=== PATIENT | female | born 1960 | race Caucasian/White ===

== ENCOUNTER → 2018-05-25 | Outpatient (CLI) | payer OTHER | END | disposition home or self-care (01) | LOC: LAB SHORT 08:41 → LAB EV 08:41 | DX: N39.0 Urinary tract infection, site not specified (principal) | CPT/HCPCS: 87077; 87086; 87186 ==

== ENCOUNTER → 2020-10-28 | Outpatient (CLI) | payer OTHER ==
[2020-10-30 16:10] LABS: HPV 16 Negative (Negative); HPV 18 Negative (Negative); HPV OTHER HR TYPES Positive (Negative)
== END | disposition home or self-care (01) ==
LOC: LAB SHORT 15:49 → LAB 15:49
PROVIDERS: Obstetrics & Gynecology
DX: Z12.4 Encounter for screening for malignant neoplasm of cervix (principal)
CPT/HCPCS: 87624; 87625; G0123

== ENCOUNTER → 2021-11-19 | Outpatient (CLI) | payer OTHER | END | disposition home or self-care (01) | LOC: LAB SHORT 11:29 | DX: R21 Rash and other nonspecific skin eruption (principal) | CPT/HCPCS: 87252; 87254 ==

== ENCOUNTER → 2023-01-11 | Outpatient (CLI) | payer OTHER ==
[2023-01-13 16:11] LABS: HPV 16 Negative (Negative); HPV 18 Negative (Negative); HPV OTHER HR TYPES Positive (Negative)
== END | disposition home or self-care (01) ==
LOC: LAB SHORT 08:35 → LAB 08:35
PROVIDERS: Family Medicine
DX: Z12.4 Encounter for screening for malignant neoplasm of cervix (principal)
CPT/HCPCS: 87624; 88175

== ENCOUNTER → 2024-10-20 | Outpatient (CLI) | payer OTHER | LOC: LAB SHORT 17:13 → LAB 17:13 | DX: N39.0 Urinary tract infection, site not specified (principal) | CPT/HCPCS: 87077; 87086; 87186 ==

== ENCOUNTER 2024-11-26 08:56 | Day surgery (SDC) | payer OTHER ==
[~2024-11-26] VITALS: Ht 160 cm; Wt 60.3 kg
[~2024-11-26 08:56] MED LIST: Lactated Ringer's 1,000 ML IV ONE; propofoL 40 ML IV ONE
[2024-11-26] MEDS ORDERED: Lactated Ringer's 1,000 ML IV ONE (09:24)
[2024-11-26] MEDS ORDERED: Aspir 8181 MG PO (09:42)
[2024-11-26] MEDS ORDERED: propofoL 20 ML IV ONE (10:52)
[2024-11-26 11:28] VITALS: BP 123/78
== END 2024-11-26 11:30 | disposition home or self-care (01) ==
LOC: ORSCSDS 08:56
PROVIDERS: Internal Medicine Gastroenterology
PROC: 0DBL8ZX Excision of Transverse Colon, Via Natural or Artificial Opening Endoscopic, Diagnostic (ICD-10-PCS; principal; 2024-11-26 10:15)
DX: Z12.11 Encounter for screening for malignant neoplasm of colon (principal); K63.5 Polyp of colon; Z87.891 Personal history of nicotine dependence
CPT/HCPCS: 88305; J2704; J7120

== ENCOUNTER → 2025-02-17 | Outpatient (CLI) | payer OTHER ==
[~2025-02-17] MED LIST changes: +Aspir 8181 MG PO; -Lactated Ringer's 1,000 ML IV ONE; -propofoL 40 ML IV ONE
[2025-03-03 11:58] LABS: HPV GENOTYPE 16 BY TMA Not Detected; HPV GENOTYPE 18/45 BY TMA Not Detected; HPV HIGH RISK BY TMA Detected; HPV SOURCE Cervical; HPVG SOURCE Cervical
== END ==
LOC: LAB SHORT 19:15 → LAB 19:15
PROVIDERS: Family Medicine
DX: Z12.4 Encounter for screening for malignant neoplasm of cervix (principal); R30.0 Dysuria
CPT/HCPCS: 87077; 87086; 87186; 87624; 87625; G0123